=== PATIENT | female | born 1950 | race Caucasian/White ===

== ENCOUNTER 2021-01-21 09:34 | Day surgery (SDCO) | payer MEDICARE, OTHER ==
[~2021-01-21] VITALS: Ht 162.6 cm; Wt 125.8 kg
[~2021-01-21 09:34] MED LIST: 3IN1 COMMODE; ACETAMINOPHEN500 M1 PO; ASPIRIN CHEWABL81 MG PO; AZITHROMYCIN250 MG PO; BACLOFEN 10MG T10 MG PO; BASAGLAR K100 UNIT/1 SC; BUMEX1 MG PO; CALCIUM600 MG PO; CATAPRES0.1 MG PO; CERTAGEN1 EACH PO; CHROMIUM PIC1000 MCG PO; COLACE100 MG PO; COMPRESSION TH1 EACH XX; COREG 6.25MG6.25 MG PO; COREG12.5 MG PO; COZAAR100 MG PO; CRESTOR20 MG PO; CYMBALTA 30MG C30 MG PO; FEOSOL325 MG PO; HUMALOG MI100 UNIT/1 SC; HYDRALAZINE 50M50 MG PO; LANTUS100 UNIT/1 SC; LEVAQUIN750 MG PO; LOPRESSOR50 MG PO; MIRALAX17 GM PO; MOBIC7.5 MG PO; MUCINEX 600MG600 MG PO; NORCO 5-325 TA1 EACH PO; NORVASC5 MG PO; NOVOLIN 70100 UNIT/M SC; ONDANSETRON ODT4 MG SL; OXYCONTIN 10MG10 MG PO; PERCOCET 5-3251 EACH PO; PLAVIX75 MG PO; PROAIR HFA8.5 GM IN; SYNTHROID75 MCG PO; TRAMADOL HCL50 MG PO; VANCOMYCIN1000 MG IV; VITAMIN D5000 UNIT PO; WELLBUTRIN XL150 MG PO; XARELTO10 MG PO; ZOFRAN4 MG PO; [UNRECOGNIZED DRUG - OTHER] INH; [UNRECOGNIZED DRUG - OTHER] XX; [UNRECOGNIZED DRUG - REMARK] XX
[2021-01-21 10:56] LABS: BASOPHIL 0.6 % (0-2); EOSINOPHIL 0.1 % (0-7); HCT 40.2 % (37.0-47.0); HGB 13.1 g/dl (12.5-16.0); LYMPHOCYTE 8.1 % (15-48); MCH 30.2 pg (25.0-31.0); MCHC 32.6 g/dL (32.0-36.0); MCV 92.6 fL (78.0-100.0); MONOCYTE 5.5 % (0-12); MPV 9.3 fL (6.0-9.5); NEUTROPHIL 85.4 % (41-80); NRBC 0; PLT 293 K/uL (150-400); RBC 4.34 M/uL (4.20-5.40); RDW 12.5 % (11.5-14.0)
[2021-01-21 11:22] LABS: CKMB 1.1 ng/mL (0.0-3.6); PRO-BNP 3296 pg/mL (<125)
[2021-01-21 11:23] LABS: ALBUMIN 1.8 g/dL (3.4-5.0); BILIRUBIN - TOTAL 0.3 mg/dL (0.2-1.0); BUN/CREAT RATIO (CALC) 16.3 RATIO; CREATININE 2.39 mg/dL (0.51-0.95); GLOBULIN (CALCULATION) 4.7 g/dL; POTASSIUM 4.3 mmol/L (3.5-5.1); TOTAL PROTEIN 6.5 g/dL (6.4-8.2)
[2021-01-21 12:40] LABS: LACTIC ACID 1.6 mmol/L (0.4-1.9)
[2021-01-21 12:45] LABS: BILIRUBIN NEGATIVE (NEGATIVE); BLOOD 2+ Ery/uL (NEGATIVE); CLARITY CLEAR (CLEAR); COLOR YELLOW (YELLOW); GLUCOSE (U) 2+ mg/dL (NORMAL); LEUKOCYTES NEGATIVE Leu/uL (NEGATIVE); NITRITE NEGATIVE (NEGATIVE); PROTEIN 3+ mg/dL (NEGATIVE); UROBILINOGEN 0.2 mg/dL (0.2-1.0)
[2021-01-21 12:59] LABS: BACTERIA 2+
[2021-01-22 05:56] LABS: BASOPHIL 0.4 % (0-2); HCT 36.5 % (37.0-47.0); HGB 11.9 g/dl (12.5-16.0); LYMPHOCYTE 16.8 % (15-48); MCH 30.7 pg (25.0-31.0); MCHC 32.6 g/dL (32.0-36.0); MCV 94.3 fL (78.0-100.0); MONOCYTE 8.3 % (0-12); MPV 9.3 fL (6.0-9.5); NEUTROPHIL 72.9 % (41-80); NRBC 0; PLT 262 K/uL (150-400); RBC 3.87 M/uL (4.20-5.40); RDW 12.8 % (11.5-14.0); WBC 11.2 K/uL (4.0-10.5)
[2021-01-22 06:17] LABS: BUN/CREAT RATIO (CALC) 14.2 RATIO; CREATININE 2.68 mg/dL (0.51-0.95); MAGNESIUM 1.9 mg/dL (1.8-2.4); POTASSIUM 4.6 mmol/L (3.5-5.1)
[2021-01-22] MEDS ORDERED: PLAVIX75 MG PO (12:40)
[2021-01-22] MEDS ORDERED: BUMETANIDE2 MG PO (12:40)
[2021-01-22] MEDS ORDERED: ATARAX25 MG PO (12:41)
[2021-01-22] MEDS ORDERED: NORVASC5 MG PO (12:42)
[2021-01-22] MEDS ORDERED: COZAAR100 MG PO (12:42)
[2021-01-22] MEDS ORDERED: CRESTOR20 MG PO (12:42)
[2021-01-22] MEDS ORDERED: CYMBALTA 30MG C30 MG PO (12:43)
[2021-01-22] MEDS ORDERED: WELLBUTRIN XL150 MG PO (12:43)
[2021-01-22] MEDS ORDERED: SYNTHROID75 MCG PO (12:43)
--- NOTE | 2021-01-22 16:23 | NUR ---
01/22/21 Ms. Keane lives alone. She has a s. seat and 3in1. A rollator has been ordered from [employer] and HHR made to [facility] per patient request. Affliation understood.
[2021-01-23] MEDS ORDERED: BUMETANIDE1 MG PO (14:13)
== END 2021-01-23 15:27 | disposition home health service (06) ==
LOC: FER 09:34 → FMS 13:20
PROVIDERS: Emergency Medicine; ADMIT Allergy & Immunology Allergy
DX: I13.0 Hypertensive heart and chronic kidney disease with heart failure and stage 1 through stage 4 chronic kidney disease, or unspecified chronic kidney disease (principal); E11.22 Type 2 diabetes mellitus with diabetic chronic kidney disease; N18.4 Chronic kidney disease, stage 4 (severe); I50.9 Heart failure, unspecified; R29.6 Repeated falls; N17.9 Acute kidney failure, unspecified; E78.5 Hyperlipidemia, unspecified; M19.90 Unspecified osteoarthritis, unspecified site; E66.01 Morbid (severe) obesity due to excess calories; F41.1 Generalized anxiety disorder; F32.9 Major depressive disorder, single episode, unspecified; M54.9 Dorsalgia, unspecified; G89.29 Other chronic pain; G47.33 Obstructive sleep apnea (adult) (pediatric); E03.9 Hypothyroidism, unspecified; Z86.73 Personal history of transient ischemic attack (TIA), and cerebral infarction without residual deficits; Z68.42 Body mass index [BMI] 45.0-49.9, adult; Z88.8 Allergy status to other drugs, medicaments and biological substances; Z79.02 Long term (current) use of antithrombotics/antiplatelets; Z79.899 Other long term (current) drug therapy; Z20.822 Contact with and (suspected) exposure to COVID-19
CPT/HCPCS: 36415; 71045; 71046; 72125; 73590; 80048; 80053; 81001; 82553; 82962; 83036; 83605; 83735; 83880; 84443; 84484; 85025; 87040; 87088; 93005; 93971; 94010; 97110; 97116; 97161; 97166; 97530-GP; 97535; G0378; J1644; J1940; J2405; U0002

== ENCOUNTER 2021-02-26 13:00 | Day surgery (SDCO) | payer MEDICARE, OTHER ==
[~2021-02-26] VITALS: Ht 162.6 cm; Wt 118.4 kg
[~2021-02-26 13:00] MED LIST changes: +ATARAX25 MG PO; +BUMETANIDE1 MG PO; +BUMETANIDE2 MG PO
[2021-02-26 15:34] LABS: BASOPHIL 0.2 % (0-2); EOSINOPHIL 1.4 % (0-7); HCT 31.8 % (37.0-47.0); HGB 10.4 g/dl (12.5-16.0); LYMPHOCYTE 26.8 % (15-48); MCH 29.7 pg (25.0-31.0); MCHC 32.7 g/dL (32.0-36.0); MCV 90.9 fL (78.0-100.0); MONOCYTE 8.3 % (0-12); MPV 10.5 fL (6.0-9.5); NEUTROPHIL 62.8 % (41-80); NRBC 0; PLT 185 K/uL (150-400); RDW 12.8 % (11.5-14.0)
[2021-02-26 15:36] LABS: WBC 4.2 K/uL (4.0-10.5)
[2021-02-26 15:38] LABS: INR 1.17 (0.9-1.2); PROTHROMBIN TIME 14.3 SECONDS (11.8-13.4)
[2021-02-26 16:03] LABS: PRO-BNP 1527 pg/mL (<125)
[2021-02-26 16:13] LABS: BILIRUBIN NEGATIVE (NEGATIVE); BLOOD NEGATIVE Ery/uL (NEGATIVE); CLARITY CLEAR (CLEAR); COLOR YELLOW (YELLOW); GLUCOSE (U) TRACE mg/dL (NORMAL); LEUKOCYTES NEGATIVE Leu/uL (NEGATIVE); NITRITE NEGATIVE (NEGATIVE); PROTEIN 3+ mg/dL (NEGATIVE); SPECIFIC GRAVITY 1.025 (1.001-1.030); UROBILINOGEN 0.2 mg/dL (0.2-1.0)
[2021-02-26 16:16] LABS: AMORPHOUS URATES CRYSTALS TRACE; BACTERIA 1+
[2021-02-26 16:17] LABS: ALBUMIN 2.2 g/dL (3.4-5.0); BILIRUBIN - TOTAL 0.3 mg/dL (0.2-1.0); BUN/CREAT RATIO (CALC) 14.2 RATIO; CREATININE 3.88 mg/dL (0.51-0.95); GLOBULIN (CALCULATION) 3.7 g/dL; POTASSIUM 3.7 mmol/L (3.5-5.1); TOTAL PROTEIN 5.9 g/dL (6.4-8.2)
[2021-02-27 06:27] LABS: BASOPHIL 0.3 % (0-2); EOSINOPHIL 1.5 % (0-7); HGB 10.7 g/dl (12.5-16.0); LYMPHOCYTE 23.7 % (15-48); MCHC 33.4 g/dL (32.0-36.0); MCV 89.6 fL (78.0-100.0); MONOCYTE 7.9 % (0-12); MPV 9.9 fL (6.0-9.5); NEUTROPHIL 66.3 % (41-80); NRBC 0; PLT 153 K/uL (150-400); RBC 3.57 M/uL (4.20-5.40); RDW 12.6 % (11.5-14.0); WBC 3.9 K/uL (4.0-10.5)
[2021-02-27 06:37] LABS: BUN/CREAT RATIO (CALC) 15.5 RATIO; CREATININE 3.54 mg/dL (0.51-0.95); MAGNESIUM 1.9 mg/dL (1.8-2.4); PHOSPHORUS 4.7 mg/dL (2.6-4.7); POTASSIUM 3.5 mmol/L (3.5-5.1)
[2021-02-27 08:18] LABS: LYMPHOCYTE(M) 20 % (15-48); MONOCYTE(M) 8 % (0-12); NEUTROPHILS(M) 72 % (41-80); TOTAL CELL COUNT 100
[2021-02-27 08:19] LABS: PLATELET ESTIMATE NORMAL; PLATELET MORPHOLOGY NORMAL
[2021-02-28 05:54] LABS: BASOPHIL 0.3 % (0-2); EOSINOPHIL 1.8 % (0-7); HCT 31.5 % (37.0-47.0); HGB 10.8 g/dl (12.5-16.0); LYMPHOCYTE 25.2 % (15-48); MCH 30.2 pg (25.0-31.0); MCHC 34.3 g/dL (32.0-36.0); MONOCYTE 5.8 % (0-12); MPV 10.1 fL (6.0-9.5); NEUTROPHIL 66.6 % (41-80); NRBC 0; PLT 165 K/uL (150-400); RBC 3.58 M/uL (4.20-5.40); RDW 12.3 % (11.5-14.0)
[2021-02-28 07:41] LABS: ALBUMIN 1.9 g/dL (3.4-5.0); ALKALINE PHOSHATASE 77 U/L (46-116); ALT 24 U/L (14-59); AST 24 U/L (15-37); BILIRUBIN - TOTAL 0.3 mg/dL (0.2-1.0); BUN 52 mg/dL (7-18); C-REACTIVE PROTEIN >18.00 mg/dL (<=0.90); CHLORIDE 95 mmol/L (98-107); CO2 (BICARBONATE) 24 mmol/L (21-32); CREATININE 3.05 mg/dL (0.51-0.95); GLOBULIN (CALCULATION) 3.7 g/dL; GLUCOSE 133 mg/dL (74-106); MAGNESIUM 1.6 mg/dL (1.8-2.4); POTASSIUM 3.7 mmol/L (3.5-5.1); TOTAL PROTEIN 5.6 g/dL (6.4-8.2)
--- NOTE | 2021-02-28 17:30 | NUR ---
02/28/21 Ms. Keane lives alone. She has a rw, 3in1, and s. chair. [facility] is current and patient would like to continue with their services. SARTHAK was notified of admission vis [facility].
[2021-03-01 06:19] LABS: BASOPHIL 0 % (0-2); EOSINOPHIL 0 % (0-7); HCT 32.3 % (37.0-47.0); HGB 10.9 g/dl (12.5-16.0); LYMPHOCYTE 21.6 % (15-48); MCH 29.5 pg (25.0-31.0); MCHC 33.7 g/dL (32.0-36.0); MCV 87.3 fL (78.0-100.0); MONOCYTE 6.8 % (0-12); MPV 10.2 fL (6.0-9.5); NEUTROPHIL 71.1 % (41-80); NRBC 0; PLT 212 K/uL (150-400); RDW 12.2 % (11.5-14.0); WBC 3.7 K/uL (4.0-10.5)
[2021-03-01 06:23] LABS: BUN 57 mg/dL (7-18); BUN/CREAT RATIO (CALC) 18.7 RATIO; C-REACTIVE PROTEIN >18.00 mg/dL (<=0.90); CHLORIDE 97 mmol/L (98-107); CO2 (BICARBONATE) 25 mmol/L (21-32); CREATININE 3.05 mg/dL (0.51-0.95); GLUCOSE 238 mg/dL (74-106); POTASSIUM 4.1 mmol/L (3.5-5.1)
[2021-03-02 08:36] LABS: BUN/CREAT RATIO (CALC) 21.7 RATIO; CREATININE 2.9 mg/dL (0.51-0.95); POTASSIUM 4.5 mmol/L (3.5-5.1)
--- NOTE | 2021-03-02 13:21 | NUR ---
03/02/21 Please notify [facility] at [phone] if patient is discharged over the weekend. Samra Valles was informed of possible discharge on 03/03.
[2021-03-03 05:47] LABS: BASOPHIL 0.1 % (0-2); EOSINOPHIL 0 % (0-7); HCT 33.7 % (37.0-47.0); HGB 11.3 g/dl (12.5-16.0); LYMPHOCYTE 12.8 % (15-48); MCH 30.1 pg (25.0-31.0); MCHC 33.5 g/dL (32.0-36.0); MCV 89.6 fL (78.0-100.0); MONOCYTE 6.7 % (0-12); MPV 9.4 fL (6.0-9.5); NEUTROPHIL 78.9 % (41-80); NRBC 0; PLT 302 K/uL (150-400); RBC 3.76 M/uL (4.20-5.40); RDW 12.5 % (11.5-14.0)
[2021-03-03 06:17] LABS: WBC 9.5 K/uL (4.0-10.5)
[2021-03-03 06:21] LABS: BUN/CREAT RATIO (CALC) 22.1 RATIO; C-REACTIVE PROTEIN 4.1 mg/dL (<=0.90); CREATININE 2.8 mg/dL (0.51-0.95)
[2021-03-03] MEDS ORDERED: BUMETANIDE2 MG PO (10:36)
== END 2021-03-03 12:55 | disposition home health service (06) ==
LOC: FER 13:00 → FMS 02-27 23:08
PROVIDERS: Allergy & Immunology Allergy; Emergency Medicine; Nurse Practitioner; Physician Assistant; ADMIT Internal Medicine
DX: U07.1 COVID-19 (principal); J12.82 Pneumonia due to coronavirus disease 2019; I13.0 Hypertensive heart and chronic kidney disease with heart failure and stage 1 through stage 4 chronic kidney disease, or unspecified chronic kidney disease; E11.22 Type 2 diabetes mellitus with diabetic chronic kidney disease; N18.4 Chronic kidney disease, stage 4 (severe); I50.9 Heart failure, unspecified; N17.9 Acute kidney failure, unspecified; J96.91 Respiratory failure, unspecified with hypoxia; E78.5 Hyperlipidemia, unspecified; M19.90 Unspecified osteoarthritis, unspecified site; G89.29 Other chronic pain; M54.9 Dorsalgia, unspecified; I69.398 Other sequelae of cerebral infarction; R26.89 Other abnormalities of gait and mobility; G47.33 Obstructive sleep apnea (adult) (pediatric); E89.0 Postprocedural hypothyroidism; I08.8 Other rheumatic multiple valve diseases; R53.1 Weakness; E89.2 Postprocedural hypoparathyroidism; E66.01 Morbid (severe) obesity due to excess calories; Z68.41 Body mass index [BMI] 40.0-44.9, adult; Z86.14 Personal history of Methicillin resistant Staphylococcus aureus infection; Z79.02 Long term (current) use of antithrombotics/antiplatelets; Z79.4 Long term (current) use of insulin; Z79.899 Other long term (current) drug therapy
CPT/HCPCS: 36415; 36600; 71045; 80048; 80053; 81001; 82728; 82803; 82962; 83605; 83735; 83880; 84100; 84145; 84484; 85025; 85610; 86140; 87088; 93005; 94010; 94640; 94760; 96374; 97110; 97163; 97165; 97530-GP; 97535; C9399; G0378; J1644; J2405; J3480; J7050; J7120; J8540; U0002

== ENCOUNTER 2021-03-20 10:33 | Inpatient (IN) | payer MEDICARE, OTHER ==
[~2021-03-20] VITALS: Ht 162.6 cm; Wt 120.2 kg
[2021-03-20 11:30] LABS: BASOPHIL 0.3 % (0-2); EOSINOPHIL 2.9 % (0-7); HCT 31.8 % (37.0-47.0); HGB 10.5 g/dl (12.5-16.0); LYMPHOCYTE 19.2 % (15-48); MCV 90.9 fL (78.0-100.0); MONOCYTE 8.9 % (0-12); MPV 9.2 fL (6.0-9.5); NEUTROPHIL 68.4 % (41-80); NRBC 0; PLT 282 K/uL (150-400); RDW 13.8 % (11.5-14.0); WBC 5.9 K/uL (4.0-10.5)
[2021-03-20 11:41] LABS: ALBUMIN 2.4 g/dL (3.4-5.0); BILIRUBIN - TOTAL 0.5 mg/dL (0.2-1.0); BUN/CREAT RATIO (CALC) 15.3 RATIO; CREATININE 2.15 mg/dL (0.51-0.95); GLOBULIN (CALCULATION) 4.7 g/dL; POTASSIUM 3.5 mmol/L (3.5-5.1); TOTAL PROTEIN 7.1 g/dL (6.4-8.2)
[2021-03-20] MEDS ORDERED: HUMALOG 75100 UNIT/M SC (15:34)
[2021-03-20] MEDS ORDERED: LANTUS **100 UNITS/ SC (15:34)
[2021-03-21 06:00] LABS: BASOPHIL 0.2 % (0-2); EOSINOPHIL 7.1 % (0-7); HCT 31.1 % (37.0-47.0); HGB 10.2 g/dl (12.5-16.0); LYMPHOCYTE 30.9 % (15-48); MCH 29.7 pg (25.0-31.0); MCHC 32.8 g/dL (32.0-36.0); MCV 90.4 fL (78.0-100.0); MONOCYTE 10.8 % (0-12); MPV 8.9 fL (6.0-9.5); NEUTROPHIL 50.8 % (41-80); NRBC 0; PLT 258 K/uL (150-400); RBC 3.44 M/uL (4.20-5.40); RDW 13.9 % (11.5-14.0); WBC 5.1 K/uL (4.0-10.5)
[2021-03-21 07:30] LABS: BUN/CREAT RATIO (CALC) 13.4 RATIO; CREATININE 1.94 mg/dL (0.51-0.95); POTASSIUM 3.6 mmol/L (3.5-5.1)
[2021-03-22 06:18] LABS: BASOPHIL 0.6 % (0-2); EOSINOPHIL 8.4 % (0-7); HGB 10.1 g/dl (12.5-16.0); LYMPHOCYTE 32.2 % (15-48); MCH 29.7 pg (25.0-31.0); MCHC 32.6 g/dL (32.0-36.0); MCV 91.2 fL (78.0-100.0); MONOCYTE 11.3 % (0-12); MPV 9.1 fL (6.0-9.5); NEUTROPHIL 47.3 % (41-80); NRBC 0; PLT 286 K/uL (150-400); RDW 13.9 % (11.5-14.0); WBC 4.8 K/uL (4.0-10.5)
[2021-03-22 06:37] LABS: BUN/CREAT RATIO (CALC) 12.6 RATIO; CREATININE 2.06 mg/dL (0.51-0.95); POTASSIUM 3.8 mmol/L (3.5-5.1)
--- NOTE | 2021-03-22 13:53 | NUR ---
03/22/21 Ms. Keane lives alone. Her daughter lives [address] down. The daughter prepares meals, performed housekeeping /laundry and transportation. Ms. Keane is current with [facility]. [facility] has been notified of discharge. Pt has a a rw, 3in1 and s. chair. - She did not require 02 at discharge.
== END 2021-03-22 13:50 | disposition home health service (06) | DRG 291 ==
LOC: FER 10:33 → FMS 12:44
PROVIDERS: Internal Medicine; ADMIT Internal Medicine
DX: I13.0 Hypertensive heart and chronic kidney disease with heart failure and stage 1 through stage 4 chronic kidney disease, or unspecified chronic kidney disease (principal); I50.33 Acute on chronic diastolic (congestive) heart failure; N18.4 Chronic kidney disease, stage 4 (severe); Z20.822 Contact with and (suspected) exposure to COVID-19; E11.22 Type 2 diabetes mellitus with diabetic chronic kidney disease; F41.1 Generalized anxiety disorder; F32.9 Major depressive disorder, single episode, unspecified; G47.33 Obstructive sleep apnea (adult) (pediatric); G89.29 Other chronic pain; E89.0 Postprocedural hypothyroidism; Z90.49 Acquired absence of other specified parts of digestive tract; Z90.710 Acquired absence of both cervix and uterus; Z98.890 Other specified postprocedural states; Z88.8 Allergy status to other drugs, medicaments and biological substances; Z90.89 Acquired absence of other organs; Z86.16 Personal history of COVID-19; Z79.02 Long term (current) use of antithrombotics/antiplatelets; Z79.4 Long term (current) use of insulin; Z79.890 Hormone replacement therapy; Z79.899 Other long term (current) drug therapy; I69.398 Other sequelae of cerebral infarction; R26.89 Other abnormalities of gait and mobility; Z98.51 Tubal ligation status; Z83.3 Family history of diabetes mellitus; Z82.49 Family history of ischemic heart disease and other diseases of the circulatory system; Z82.3 Family history of stroke
CPT/HCPCS: 36415; 36600; 71045; 78580; 80048; 80053; 82803; 82962; 83880; 84145; 84484; 85025; 93005; 94762; 97162; 97165; 97530-GP; 97535; A9540; J1650; J1815; J1940; J3490; U0002

== ENCOUNTER 2021-04-25 16:50 | Inpatient (IN) | payer MEDICARE, OTHER ==
[~2021-04-25] VITALS: Ht 162.6 cm; Wt 113.6 kg
[~2021-04-25 16:50] MED LIST changes: +HUMALOG 75100 UNIT/M SC; +LANTUS **100 UNITS/ SC
[2021-04-25 17:31] LABS: BILIRUBIN NEGATIVE (NEGATIVE); BLOOD 3+ Ery/uL (NEGATIVE); CLARITY CLEAR (CLEAR); COLOR YELLOW (YELLOW); GLUCOSE (U) 2+ mg/dL (NORMAL); LEUKOCYTES NEGATIVE Leu/uL (NEGATIVE); NITRITE NEGATIVE (NEGATIVE); PROTEIN 3+ mg/dL (NEGATIVE); SPECIFIC GRAVITY >=1.030 (1.001-1.030); UROBILINOGEN 0.2 mg/dL (0.2-1.0); pH 5.5 (5.0-9.0)
[2021-04-25 17:43] LABS: BACTERIA TRACE; URINARY RBC RARE
[2021-04-25 17:45] LABS: GRANULAR CASTS TRACE
[2021-04-25 18:17] LABS: BASOPHIL 0.2 % (0-2); EOSINOPHIL 0.1 % (0-7); HCT 38.8 % (37.0-47.0); HGB 12.8 g/dl (12.5-16.0); LYMPHOCYTE 6.3 % (15-48); MCV 90.9 fL (78.0-100.0); MPV 9.3 fL (6.0-9.5); NEUTROPHIL 87.8 % (41-80); NRBC 0; PLT 330 K/uL (150-400); RBC 4.27 M/uL (4.20-5.40); WBC 13.1 K/uL (4.0-10.5)
[2021-04-25 19:07] LABS: LACTIC ACID 1.5 mmol/L (0.4-1.9)
[2021-04-25 19:15] LABS: INR 1.12 (0.9-1.2); PROTHROMBIN TIME 13.8 SECONDS (11.8-13.4); PTT 31.4 SECONDS (24.4-34.7)
[2021-04-25 19:17] LABS: ALBUMIN 3.2 g/dL (3.4-5.0); BILIRUBIN - TOTAL 0.5 mg/dL (0.2-1.0); BUN/CREAT RATIO (CALC) 18.2 RATIO; CREATININE 3.79 mg/dL (0.51-0.95); MAGNESIUM 2.4 mg/dL (1.8-2.4); POTASSIUM 5.7 mmol/L (3.5-5.1); TOTAL PROTEIN 7.2 g/dL (6.4-8.2)
[2021-04-26 07:35] LABS: BASOPHIL 0.7 % (0-2); EOSINOPHIL 2.4 % (0-7); HCT 34.3 % (37.0-47.0); HGB 11.1 g/dl (12.5-16.0); LYMPHOCYTE 21.4 % (15-48); MCH 29.8 pg (25.0-31.0); MCHC 32.4 g/dL (32.0-36.0); MCV 92.2 fL (78.0-100.0); MONOCYTE 9.2 % (0-12); MPV 9.3 fL (6.0-9.5); NEUTROPHIL 65.9 % (41-80); NRBC 0; PLT 293 K/uL (150-400); RBC 3.72 M/uL (4.20-5.40); RDW 14.3 % (11.5-14.0); WBC 9.2 K/uL (4.0-10.5)
[2021-04-26 07:56] LABS: ALBUMIN 2.4 g/dL (3.4-5.0); BILIRUBIN - TOTAL 0.4 mg/dL (0.2-1.0); BUN/CREAT RATIO (CALC) 19.5 RATIO; CREATININE 3.18 mg/dL (0.51-0.95); GLOBULIN (CALCULATION) 4.2 g/dL; POTASSIUM 4.6 mmol/L (3.5-5.1); TOTAL PROTEIN 6.6 g/dL (6.4-8.2)
[2021-04-27 06:35] LABS: BASOPHIL 0.9 % (0-2); EOSINOPHIL 6.2 % (0-7); HCT 33.7 % (37.0-47.0); HGB 10.7 g/dl (12.5-16.0); LYMPHOCYTE 27.9 % (15-48); MCH 30.1 pg (25.0-31.0); MCHC 31.8 g/dL (32.0-36.0); MCV 94.7 fL (78.0-100.0); MONOCYTE 8.9 % (0-12); MPV 9.2 fL (6.0-9.5); NEUTROPHIL 55.7 % (41-80); NRBC 0; PLT 280 K/uL (150-400); RBC 3.56 M/uL (4.20-5.40); RDW 14.3 % (11.5-14.0); WBC 7.5 K/uL (4.0-10.5)
[2021-04-27 06:49] LABS: ALBUMIN 2.1 g/dL (3.4-5.0); BILIRUBIN - TOTAL 0.3 mg/dL (0.2-1.0); BUN/CREAT RATIO (CALC) 17.4 RATIO; CREATININE 2.93 mg/dL (0.51-0.95); GLOBULIN (CALCULATION) 3.9 g/dL; POTASSIUM 4.9 mmol/L (3.5-5.1)
[2021-04-28 06:35] LABS: BASOPHIL 0.5 % (0-2); EOSINOPHIL 6.1 % (0-7); HCT 33.3 % (37.0-47.0); HGB 10.7 g/dl (12.5-16.0); LYMPHOCYTE 22.4 % (15-48); MCH 30.1 pg (25.0-31.0); MCHC 32.1 g/dL (32.0-36.0); MCV 93.8 fL (78.0-100.0); MONOCYTE 9.8 % (0-12); MPV 9.2 fL (6.0-9.5); NEUTROPHIL 60.7 % (41-80); NRBC 0; PLT 289 K/uL (150-400); RBC 3.55 M/uL (4.20-5.40); RDW 13.9 % (11.5-14.0); WBC 7.3 K/uL (4.0-10.5)
[2021-04-28 07:08] LABS: CREATININE 2.61 mg/dL (0.51-0.95); POTASSIUM 5.1 mmol/L (3.5-5.1)
[2021-04-29 05:30] LABS: BASOPHIL 0.7 % (0-2); EOSINOPHIL 7.1 % (0-7); HCT 37.3 % (37.0-47.0); LYMPHOCYTE 23.3 % (15-48); MCH 30.2 pg (25.0-31.0); MCHC 32.2 g/dL (32.0-36.0); MCV 93.7 fL (78.0-100.0); MONOCYTE 9.8 % (0-12); MPV 9.3 fL (6.0-9.5); NEUTROPHIL 58.7 % (41-80); NRBC 0; PLT 364 K/uL (150-400); RBC 3.98 M/uL (4.20-5.40); RDW 13.7 % (11.5-14.0)
[2021-04-29 05:43] LABS: BUN/CREAT RATIO (CALC) 18.3 RATIO; CREATININE 2.29 mg/dL (0.51-0.95); POTASSIUM 4.9 mmol/L (3.5-5.1)
[2021-04-30 06:59] LABS: BASOPHIL 0.8 % (0-2); EOSINOPHIL 6.5 % (0-7); HCT 35.7 % (37.0-47.0); HGB 11.6 g/dl (12.5-16.0); LYMPHOCYTE 30.3 % (15-48); MCH 30.1 pg (25.0-31.0); MCHC 32.5 g/dL (32.0-36.0); MCV 92.5 fL (78.0-100.0); MONOCYTE 9.2 % (0-12); MPV 9.1 fL (6.0-9.5); NEUTROPHIL 52.2 % (41-80); NRBC 0; PLT 306 K/uL (150-400); RBC 3.86 M/uL (4.20-5.40); RDW 14.1 % (11.5-14.0); WBC 6.2 K/uL (4.0-10.5)
[2021-04-30 07:23] LABS: BUN/CREAT RATIO (CALC) 18.3 RATIO; CREATININE 2.52 mg/dL (0.51-0.95); POTASSIUM 5.1 mmol/L (3.5-5.1)
[2021-04-30] MEDS ORDERED: HYDRALAZINE 10M10 MG PO (10:20)
[2021-04-30] MEDS ORDERED: LOPRESSOR50 MG PO (10:20)
[2021-04-30] MEDS ORDERED: CLONIDINE HCL0.1 MG PO (10:20)
[2021-04-30 19:09] LABS: BILIRUBIN NEGATIVE (NEGATIVE); BLOOD 2+ Ery/uL (NEGATIVE); CLARITY CLEAR (CLEAR); COLOR YELLOW (YELLOW); GLUCOSE (U) 2+ mg/dL (NORMAL); LEUKOCYTES TRACE Leu/uL (NEGATIVE); NITRITE NEGATIVE (NEGATIVE); PROTEIN 2+ mg/dL (NEGATIVE); SPECIFIC GRAVITY >=1.030 (1.001-1.030); UROBILINOGEN 0.2 mg/dL (0.2-1.0)
[2021-04-30 19:13] LABS: URINARY WBC 20-50
[2021-04-30 19:14] LABS: BACTERIA 2+; SQUAMOUS EPITHELIAL CELLS RARE
[2021-05-01 07:53] LABS: ALBUMIN 2.3 g/dL (3.4-5.0); BILIRUBIN - TOTAL 0.2 mg/dL (0.2-1.0); BUN/CREAT RATIO (CALC) 18.3 RATIO; CREATININE 2.79 mg/dL (0.51-0.95); GLOBULIN (CALCULATION) 4.2 g/dL; TOTAL PROTEIN 6.5 g/dL (6.4-8.2)
[2021-05-02 06:36] LABS: BASOPHIL 0.9 % (0-2); EOSINOPHIL 6.7 % (0-7); HCT 30.9 % (37.0-47.0); HGB 10.1 g/dl (12.5-16.0); LYMPHOCYTE 27.1 % (15-48); MCHC 32.7 g/dL (32.0-36.0); MCV 91.7 fL (78.0-100.0); MONOCYTE 10.9 % (0-12); MPV 9.5 fL (6.0-9.5); NEUTROPHIL 53.5 % (41-80); NRBC 0; PLT 309 K/uL (150-400); RBC 3.37 M/uL (4.20-5.40); RDW 14.4 % (11.5-14.0); WBC 5.7 K/uL (4.0-10.5)
[2021-05-02 07:07] LABS: BUN/CREAT RATIO (CALC) 19.4 RATIO; CREATININE 2.47 mg/dL (0.51-0.95); PHOSPHORUS 5.4 mg/dL (2.6-4.7); POTASSIUM 4.8 mmol/L (3.5-5.1)
[2021-05-02] MEDS ORDERED: ASPIRIN EC81 MG PO (17:09)
[2021-05-02] MEDS ORDERED: MULTIPLE VITAM1 EAC1 PO (17:10)
[2021-05-02] MEDS ORDERED: VITAMIN D3 COM1 EACH PO (17:13)
[2021-05-02] MEDS ORDERED: LANTUS **100 UNITS/ SC (17:41)
[2021-05-02] MEDS ORDERED: HUMALOG100 UNIT/3 SC (17:42)
[2021-05-03 06:12] LABS: BASOPHIL 0.9 % (0-2); EOSINOPHIL 5.2 % (0-7); HCT 34.9 % (37.0-47.0); HGB 11.1 g/dl (12.5-16.0); LYMPHOCYTE 33.6 % (15-48); MCHC 31.8 g/dL (32.0-36.0); MCV 94.3 fL (78.0-100.0); MONOCYTE 9.4 % (0-12); MPV 9.3 fL (6.0-9.5); NEUTROPHIL 50.2 % (41-80); NRBC 0; PLT 329 K/uL (150-400); RDW 14.3 % (11.5-14.0); WBC 6.8 K/uL (4.0-10.5)
[2021-05-03 06:41] LABS: BUN/CREAT RATIO (CALC) 19.7 RATIO; CREATININE 2.28 mg/dL (0.51-0.95)
[2021-05-03] MEDS ORDERED: MIRALAX17 GM PO (12:00)
[2021-05-03] MEDS ORDERED: HUMULIN R100 UNIT/2 SC (12:00)
[2021-05-03] MEDS ORDERED: COLACE100 MG PO (12:00)
[2021-05-03] MEDS ORDERED: PROVENTIL HFA6.7 GM INH (12:00)
[2021-05-03] MEDS ORDERED: NORCO 5-325 TA1 EACH PO (12:06)
[2021-05-03] MEDS ORDERED: HYDRALAZINE HCL50 MG PO (12:07)
== END 2021-05-03 16:15 | DRG 558 ==
LOC: FER 16:50 → FMS 20:05
PROVIDERS: Emergency Medicine; Internal Medicine; Nurse Practitioner; ADMIT Internal Medicine
DX: M62.82 Rhabdomyolysis (principal); S22.42XA Multiple fractures of ribs, left side, initial encounter for closed fracture; N17.9 Acute kidney failure, unspecified; I13.0 Hypertensive heart and chronic kidney disease with heart failure and stage 1 through stage 4 chronic kidney disease, or unspecified chronic kidney disease; I50.32 Chronic diastolic (congestive) heart failure; J98.11 Atelectasis; Z68.41 Body mass index [BMI] 40.0-44.9, adult; N18.4 Chronic kidney disease, stage 4 (severe); Z20.822 Contact with and (suspected) exposure to COVID-19; E11.22 Type 2 diabetes mellitus with diabetic chronic kidney disease; E11.40 Type 2 diabetes mellitus with diabetic neuropathy, unspecified; E66.01 Morbid (severe) obesity due to excess calories; E78.5 Hyperlipidemia, unspecified; E86.0 Dehydration; M19.90 Unspecified osteoarthritis, unspecified site; F41.1 Generalized anxiety disorder; G89.29 Other chronic pain; G47.33 Obstructive sleep apnea (adult) (pediatric); E87.5 Hyperkalemia; Z96.653 Presence of artificial knee joint, bilateral; K59.00 Constipation, unspecified; E89.0 Postprocedural hypothyroidism; I08.1 Rheumatic disorders of both mitral and tricuspid valves; I27.20 Pulmonary hypertension, unspecified; Z90.49 Acquired absence of other specified parts of digestive tract; Z90.710 Acquired absence of both cervix and uterus; Z98.51 Tubal ligation status; I69.398 Other sequelae of cerebral infarction; Z86.16 Personal history of COVID-19; Z83.3 Family history of diabetes mellitus; Z82.49 Family history of ischemic heart disease and other diseases of the circulatory system; Z88.8 Allergy status to other drugs, medicaments and biological substances; Z79.02 Long term (current) use of antithrombotics/antiplatelets; Z79.4 Long term (current) use of insulin; Z79.899 Other long term (current) drug therapy; W18.39XA Other fall on same level, initial encounter; Y93.E1 Activity, personal bathing and showering; Y92.002 Bathroom of unspecified non-institutional (private) residence as the place of occurrence of the external cause
CPT/HCPCS: 36415; 70450; 71045; 71250; 73020; 73080; 73502; 80048; 80053; 81001; 82550; 82962; 83605; 83735; 83880; 84100; 84484; 85025; 85610; 85730; 87088; 93005; 94010; 94640; 94667; 94668; 96374; 96375; 97162; 97166; 97530-GP; 97535; J0360; J0696; J1650; J1815; J2270; J2405; J2550; J7030; U0002

== ENCOUNTER 2022-03-09 21:03 | Emergency (ER) | payer MEDICARE, OTHER ==
[~2022-03-09 21:03] MED LIST changes: +ASPIRIN EC81 MG PO; +CLONIDINE HCL0.1 MG PO; +HUMALOG100 UNIT/3 SC; +HUMULIN R100 UNIT/2 SC; +HYDRALAZINE 10M10 MG PO; +HYDRALAZINE HCL50 MG PO; +MULTIPLE VITAM1 EAC1 PO; +PROVENTIL HFA6.7 GM INH; +VITAMIN D3 COM1 EACH PO
[2022-03-09 22:43] LABS: CORONAVIRUS 2019 SARS-COV-2 NEGATIVE (NEGATIVE); INFLUENZA A NAA NEGATIVE (NEGATIVE)
[2022-03-09 22:56] LABS: BASOPHIL 0.3 % (0-2); EOSINOPHIL 3.5 % (0-7); HGB 9.3 g/dl (12.5-16.0); LYMPHOCYTE 20.7 % (15-48); MCH 30.9 pg (25.0-31.0); MCHC 34.4 g/dL (32.0-36.0); MCV 89.7 fL (78.0-100.0); MONOCYTE 10.8 % (0-12); MPV 9.7 fL (6.0-9.5); NEUTROPHIL 64.1 % (41-80); NRBC 0; PLT 235 K/uL (150-400); RBC 3.01 M/uL (4.20-5.40); RDW 12.7 % (11.5-14.0); WBC 6.9 K/uL (4.0-10.5)
[2022-03-09 23:03] LABS: ACETAMINOPHEN (TYLENOL) 18.7 ug/mL (10.0-30.0); BILIRUBIN - TOTAL 0.2 mg/dL (0.2-1.0); CREATININE 4.36 mg/dL (0.51-0.95); POTASSIUM 3.9 mmol/L (3.5-5.1)
[2022-03-09 23:06] LABS: BILIRUBIN NEGATIVE (NEGATIVE); BLOOD TRACE-INTACT Ery/uL (NEGATIVE); CLARITY CLEAR (CLEAR); COLOR YELLOW (YELLOW); GLUCOSE (U) 2+ mg/dL (NORMAL); LEUKOCYTES NEGATIVE Leu/uL (NEGATIVE); NITRITE NEGATIVE (NEGATIVE); PROTEIN 2+ mg/dL (NEGATIVE); SPECIFIC GRAVITY 1.015 (1.001-1.030); UROBILINOGEN 0.2 mg/dL (0.2-1.0)
[2022-03-09 23:13] LABS: BACTERIA TRACE; URINARY WBC RARE
== END 2022-03-10 09:20 | disposition other institution (70) ==
LOC: FER 21:03
PROVIDERS: Emergency Medicine
DX: S32.018A Other fracture of first lumbar vertebra, initial encounter for closed fracture (principal); J81.1 Chronic pulmonary edema; N17.9 Acute kidney failure, unspecified; I13.0 Hypertensive heart and chronic kidney disease with heart failure and stage 1 through stage 4 chronic kidney disease, or unspecified chronic kidney disease; E11.22 Type 2 diabetes mellitus with diabetic chronic kidney disease; N18.9 Chronic kidney disease, unspecified; I50.9 Heart failure, unspecified; Z20.822 Contact with and (suspected) exposure to COVID-19; Z86.73 Personal history of transient ischemic attack (TIA), and cerebral infarction without residual deficits; W18.39XA Other fall on same level, initial encounter
CPT/HCPCS: 36415; 70450; 71045; 72131; 80053; 81001; 83880; 84484; 85025; 93005; G0480; J2270; J2405; U0002